=== PATIENT | male | born 1985 | race Caucasian/White ===

== ENCOUNTER 2018-06-30 20:04 | Emergency (ER) | payer BC, MEDICAID ==
[~2018-06-30] VITALS: Ht 182.9 cm; Wt 79.4 kg
[~2018-06-30 20:04] MED LIST: BUPR300T52 PO
[2018-06-30 20:49] LABS: BASOPHILS % (AUTO) 0.6 % (0.0-2.0); EOSINOPHILS % (AUTO) 0.2 % (0.0-7.0); HEMATOCRIT 48.5 % (36.7-47.1); HEMOGLOBIN 16.4 g/dL (12.5-16.3); LYMPHOCYTES # (AUTO) 2.5 K/uL (20.0-40.0); LYMPHOCYTES % (AUTO) 32.5 % (20.5-51.5); MEAN CORPUSCULAR HEMOGLOBIN 31.6 uug (23.8-33.4); MEAN CORPUSCULAR HGB CONC 34 g/dL (32.5-36.3); MEAN CORPUSCULAR VOLUME 93.4 fL (73.0-96.2); MONOCYTES # (AUTO) 0.5 K/uL (2.0-10.0); MONOCYTES % (AUTO) 6.6 % (0.0-11.0); NEUTROPHILS # (AUTO) 4.5 K/uL (1.8-8.9); NEUTROPHILS % (AUTO) 60.1 % (38.5-71.5); PLATELET COUNT (AUTO) 208 K/uL (152-348); WHITE BLOOD COUNT (AUTO) 7.6 K/uL (3.6-10.2)
[2018-06-30 20:58] LABS: CREATININE 0.8 mg/dL (0.6-1.3); POTASSIUM 3.8 mmol/L (3.5-5.1)
--- NOTE | 2018-06-30 21:00 | NUR ---
Patient back from CT. No acute distress noted. VSS
--- NOTE | 2018-06-30 21:06 | NUR ---
Patient in bed, no acute distress noted. NSR on addiction nurse.
[2018-06-30 21:11] LABS: BILIRUBIN,DIRECT 0.1 mg/dL (0.0-0.2); BILIRUBIN,TOTAL 0.2 mg/dL (0.2-1.0); TOTAL PROTEIN, SERUM 8.3 g/dL (6.4-8.2)
--- NOTE | 2018-06-30 21:25 | NUR ---
Note christel in EDM - 06/30/18 at 2143 by LISSY patient is AAOx4. Speaking in complete sentences. Speech is clear. patient has c/o R foot injury with laceration s/p having a clock fall on it. patient states there was a sharp end on the clock which punctured an area >1in in length to her anterior R foot. She is able to ambulate with stable gait and no obvious deformity to the extremity. No active bleeding noted at this time.
--- NOTE | 2018-06-30 21:54 | NUR ---
Patient in bed, no acute distress noted. VSS
--- NOTE | 2018-06-30 23:40 | NUR ---
Patient in bed, no acute distress noted. VSS
--- NOTE | 2018-07-01 00:45 | NUR ---
Patient in bed, no acute distress noted. Remains intoxicated, pending sobriety then d/c.
--- NOTE | 2018-07-01 01:30 | NUR ---
Patient in bed, no acute distress noted. VSS
--- NOTE | 2018-07-01 01:38 | NUR ---
Patient discharged to home in stable conditon. Written and verbal after care instructions given. Patient verbalizes understanding of instructions. Ambulated from ER with stable gait. All belongings with patient. VSS
[2018-07-01 01:39] VITALS: BP 121/80
--- NOTE | 2018-07-01 01:42 | NUR ---
PAtient to be driven home by taxi
== END 2018-07-01 01:42 | disposition home or self-care (01) ==
LOC: ER 20:04
DX: F10.129 Alcohol abuse with intoxication, unspecified (principal); Z79.899 Other long term (current) drug therapy; Y90.8 Blood alcohol level of 240 mg/100 ml or more
CPT/HCPCS: 36415; 70450; 72125; 80048; 80076; 85025; 99284; G0480; A4663